=== PATIENT | female | born 1965 | race Caucasian/White ===

== ENCOUNTER 2017-01-03 20:31 | Emergency (ER) | payer BC ==
[~2017-01-03] VITALS: Ht 167.6 cm; Wt 99.8 kg
[2017-01-03 20:31] VITALS: BP 179/98
--- NOTE | 2017-01-03 20:39 | ED.ADGEN ---
Past History Past Medical History: Other Adult General Chief Complaint Chief Complaint " I was stepping over my dog "Happy" fence in my front room.. and got caught up and twisted this ankle 2 weeks ago... it turn all black and blue.. that florencia gone away.. but this part is still really tender ( indicates distal tibia) [facility] HPI Patient is a 51 year old female who presents with above hx and injury to right ankle. The ankle does show resolving ecchymosis. Does have laxity on anterior drawer and eversion. Localizes pain on distal tibia medial side. There is mild pain on foot squeeze. Distal neurovascular intact. Achilles tendon nontender. There is a varicosity and It is nontender. No upper leg tenderness. Patient denies other injury. Patient normally follows with Dr. Gomez Review of Systems Review of Systems Constitutional: Denies fever or chills [] Eyes: Denies change in visual acuity, redness, or eye pain [] HENT: Denies nasal congestion or sore throat [] Respiratory: Denies cough or shortness of breath [] Cardiovascular: No additional information not addressed in HPI [] GI: Denies abdominal pain, nausea, vomiting, bloody stools or diarrhea [] : Denies dysuria or hematuria [] Musculoskeletal: Denies back pain or joint pain []except right ankle pain Integument: Denies rash or skin lesions [] Neurologic: Denies headache, focal weakness or sensory changes [] Endocrine: Denies polyuria or polydipsia [] Family History Family History Noncontributory Current Medications Current Medications See nursing for home meds Allergies Allergies Allergies Coded Allergies Type Severity Reaction Last Updated Verified No Known Drug Allergies 01/03/17 No Physical Exam Physical Exam Constitutional: Well developed, well nourished, no acute distress, non-toxic appearance. [] HENT: Normocephalic, atraumatic, bilateral external ears normal, oropharynx moist, no oral exudates, nose normal. [] Eyes: PERRLA, EOMI, conjunctiva normal, no discharge. [] Neck: Normal range of motion, no tenderness, supple, no stridor. [] Cardiovascular:Heart rate regular rhythm, no murmur [] Lungs & Thorax: Bilateral breath sounds clear to auscultation [] Abdomen: Bowel sounds normal, soft, no tenderness, no masses, no pulsatile masses. Obese Skin: Warm, dry, no erythema, no rash. [] Back: No tenderness, no CVA tenderness. [] Extremities: No tenderness, no cyanosis, no clubbing, ROM intact, no edema. [] Except right ankle as per history of present illness Neurologic: Alert and oriented X 3, normal motor function, normal sensory function, no focal deficits noted. [] Psychologic: Affect normal, judgement normal, mood normal. [] Current Patient Data Vital Signs Vital Signs Date Time Temp Pulse Resp B/P (MAP) Pulse Ox O2 Delivery O2 Flow Rate FiO2 01/03/17 20:31 98.7 101 18 97 Room Air EKG EKG [] Radiology/Procedures Radiology/Procedures My interpretation of foot film showed no obvious fracture dislocation. There is multiple areas of spurring and degenerative joint changes. There is an area at the distal tibia which may be a prolonged fracture or calcified ligament disruption. Can also be seen on the lateral ankle films. This is area of at has point tenderness.[] Course & Med Decision Making Course & Med Decision Making Pertinent Labs and Imaging studies reviewed. (See chart for details) Ice, rest, elevation, ibuprofen Tylenol for pain. Wear splint. Follow-up primary care. Consider follow-up with orthopedics [] Final Impression Final Impression 1. Sprain / Strain 2. Fx. Tib. vs pull off spur or calcified ligament[] Problems: Dragon Disclaimer Dragon Disclaimer This electronic medical record was generated, in whole or in part, using a voice recognition dictation system. CARLOS STEVEN MD Jan 03, 2017 20:39
--- NOTE | 2017-01-04 08:15 | RAD ---
Right foot, 3 views, 2016: History: Fall, injury, pain No acute fracture or dislocation is identified. There are scattered degenerative changes including the first MTP joint and at the midfoot level. There is a small inferior calcaneal spur. There is mild subcutaneous edema. IMPRESSION: 1. Moderate scattered degenerative changes. 2. No acute bony abnormality is detected. Right ankle, 3 views, 2016: No acute fracture or dislocation is identified. There is mild spurring at the ankle joint. IMPRESSION: No acute bony abnormality is detected.
== END 2017-01-03 21:58 | disposition home or self-care (01) ==
LOC: ER 20:31
DX: S99.911A Unspecified injury of right ankle, initial encounter (principal); W54.8XXA Other contact with dog, initial encounter; Y93.89 Activity, other specified; Y99.8 Other external cause status; Y92.89 Other specified places as the place of occurrence of the external cause
CPT/HCPCS: 73610; 73630; 99284

== ENCOUNTER → 2019-11-16 | Outpatient (CLI) | payer BC ==
--- NOTE | 2019-11-16 10:55 | RAD ---
EXAM: Right knee, 3 views. HISTORY: Pain. COMPARISON: None. FINDINGS: 3 views of the right knee are obtained. There is no fracture, dislocation or subluxation. There is mild medial and patellofemoral compartment spurring. There is an intra-articular spur along the tibial spines. There is a small bone island. There is a small joint effusion. IMPRESSION: 1. Mild right knee osteoarthritis. 2. Small right knee effusion. Electronically signed by: Eloisa Benjamin MD (11/16/2019 10:52 AM) [id number]
== END | disposition home or self-care (01) ==
LOC: PMG 10:21
DX: M17.11 Unilateral primary osteoarthritis, right knee (principal); M25.461 Effusion, right knee; M76.9 Unspecified enthesopathy, lower limb, excluding foot
CPT/HCPCS: 73562

== ENCOUNTER → 2020-05-03 | Outpatient (CLI) | payer BC ==
--- NOTE | 2020-05-03 09:20 | RAD ---
Right lower extremity venous duplex study 05/03/2020 9:16 AM Clinical History: Reason: RIGHT CALF PAIN X 6 DAYS / Technique: Using a combination of real time ultrasound imaging and color-flow and pulse Doppler imagi ng techniques, including spectral analysis, graded compression and augmentation, duplex evaluation of the deep venous system of the right lower extremity was performed. Multiple images were obtained. Findings: There is no sonographic evidence of deep venous thrombosis involving the visualized deep ve nous structures of the right lower extremity Impression: No evidence of deep venous thrombosis involving the right lower extremity Electronically signed by: Michael Quinn MD (05/03/2020 9:16 AM) [id number]
== END ==
LOC: US 08:41
PROVIDERS: ATTEND Nurse Practitioner Family
DX: M79.661 Pain in right lower leg (principal)
CPT/HCPCS: 93971

== ENCOUNTER 2020-09-13 00:45 | Emergency (ER) | payer BC ==
[~2020-09-13] VITALS: Ht 167.6 cm; Wt 104.5 kg
--- NOTE | 2020-09-13 01:13 | PHYS DOC ---
Past History Past Medical History: Hypothyroid, Other Past Surgical History: No Surgical History Alcohol Use: None Drug Use: None General Adult EDM: Chief Complaint: CHEST PAIN HPI: HPI: 55-year-old female presents with chest pain. She has been having sharp, intermittent chest pain for the last 4 days. The episodes last from several minutes up to an hour or 2. She presents tonight because she had an episode of 10 out of 10 pain 30 min prior to arrival. It has decreased to a 3 out of 10. She has some mild shortness of breath with the pain, but denies diaphoresis. There does not seem to be any pattern. Nothing makes it better or worse. Exertion doesn't make it worse. She denies fever or chills. No significant history of GERD. Review of Systems: Review of Systems: Constitutional: Denies fever or chills Eyes: Denies change in visual acuity HENT: Denies nasal congestion or sore throat Respiratory: Denies cough or shortness of breath Cardiovascular: Chest pain GI: Denies abdominal pain, nausea, vomiting, bloody stools or diarrhea : Denies dysuria Musculoskeletal: Denies back pain or joint pain Integument: Denies rash Neurologic: Denies headache, focal weakness or sensory changes Endocrine: Denies polyuria or polydipsia Lymphatic: Denies swollen glands Psychiatric: Denies depression or anxiety Allergies: Allergies: Allergies Coded Allergies Type Severity Reaction Last Updated Verified No Known Drug Allergies 01/03/17 No Physical Exam: PE: Constitutional: Well developed, well nourished, morbidly obese, no acute di stress, non-toxic appearance. [] HENT: Normocephalic, atraumatic, bilateral external ears normal, oropharynx moist, no oral exudates, nose normal. [] Eyes: PERRLA, EOMI, conjunctiva normal, no discharge. [] Neck: Normal range of motion, no tenderness, supple, no stridor. [] Cardiovascular: Heart rate 82, regular rhythm, no murmur [] Lungs & Thorax: Bilateral breath sounds clear to auscultation [] Abdomen: Bowel sounds normal, soft, no tenderness, no masses, no pulsatile masses. [] Skin: Warm, dry, no erythema, no rash. [] Back: No tenderness, no CVA tenderness. [] Extremities: No tenderness, no cyanosis, no clubbing, ROM intact, no edema. [] Neurologic: Alert and oriented X 3, normal motor function, normal sensory function, no focal deficits noted. [] Psychologic: Affect normal, judgement normal, mood normal. [] Current Patient Data: Vital Signs: Vital Signs Date Time Temp Pulse Resp B/P (MAP) Pulse Ox O2 Delivery O2 Flow Rate FiO2 09/13/20 00:45 97.8 82 20 165/88 (113) 95 Room Air EKG: EKG: Sinus rhythm, rate 82, normal axis, no ST elevations or depressions. [] Radiology/Procedures: Radiology/Procedures: [] Impressions: INDICATION: Reason: CP / Spl. Instructions: / History: COMPARISON: April 2006 FINDINGS: Single view of chest obtained. Cardiac silhouette is unremarkable. Degenerative changes of the spine. No definite focal consolidation or edema. IMPRESSION: * No focal airspace consolidation or edema. Electronically signed by: Mariano Knox MD (09/13/2020 1:36 AM) [id number] DICTATED AND SIGNED BY: MARIANO KNOX MD DATE: 09/13/20 0135 CC: LYNSEY HENDRICKS DO; JETHRO CARNEY PA ~MTH0 0 Heart Score: C/O Chest Pain: Yes HEART Score for Chest Pain: HEART Score for Chest Pain Response (Comments) Value History Slighlty/Non-Suspicious 0 ECG Normal 0 Age >45 - < 65 1 Risk Factors 1 or 2 Risk Factors 1 Troponin < Normal Limit 0 Total 2 Risk Factors: Risk Factors: DM, Current or recent (<one month) smoker, HTN, HLP, family history of CAD, obesity. Risk Scores: Score 0 - 3: 2.5% MACE over next 6 weeks - Discharge Home Score 4 - 6: 20.3% MACE over next 6 weeks - Admit for Clinical Observation Score 7 - 10: 72.7% MACE over next 6 weeks - Early Invasive Strategies Course & Med Decision Making: Course & Med Decision Making Pertinent Labs and Imaging studies reviewed. (See chart for details) The patient's labs are unremarkable. Her EKG is unremarkable. Her troponin is negative. Patient's chest x-ray is negative for acute findings. Given that the patient's had this pain for multiple days and her heart score is a 2, I do not believe the patient needs to be admitted. I have tried Pepcid to see if this might help. The patient will follow up with her primary care physician as needed. She is stable for discharge at this time. [] Axel Disclaimer: Axel Disclaimer: This electronic medical record was generated, in whole or in part, using a voice recognition dictation system. Departure Departure: Impression: Primary Impression: Chest pain Qualified Codes: R07.9 - Chest pain, unspecified Disposition: HOME / SELF CARE / HOMELESS Condition: STABLE Referrals: JETHRO CARNEY (PCP) Patient Instructions: Chest Pain (Nonspecific), [id number] LYNSEY HENDRICKS DO September 13, 2020 01:13
[2020-09-13 01:16] LABS: CALCIUM 9.1 mg/dL (8.5-10.1); CREATININE 0.7 mg/dL (0.6-1.0); GFR 86.2; POTASSIUM 3.7 mmol/L (3.5-5.1)
[2020-09-13 01:22] LABS: ALBUMIN 3.7 g/dL (3.4-5.0); ALBUMIN/GLOBULIN RATIO 0.9 (1.0-1.7); TOTAL BILIRUBIN 0.3 mg/dL (0.2-1.0); TOTAL PROTEIN 7.7 g/dL (6.4-8.2)
[2020-09-13 01:28] LABS: BASO # 0.1 x10^3/uL (0.0-0.2); BASO % 1 % (0-3); EOS # 0.2 x10^3/uL (0.0-0.7); EOS % 3 % (0-3); HEMATOCRIT 41.2 % (36.0-47.0); HEMOGLOBIN 13.9 g/dL (12.0-15.5); LYMPH # 3.7 x10^3/uL (1.0-4.8); LYMPH % 45 % (24-48); MEAN CORPUSCULAR HEMOGLOBIN 30 pg (25-35); MEAN CORPUSCULAR HGB CONC 34 g/dL (31-37); MEAN CORPUSCULAR VOLUME 90 fL (79-100); MONO # 0.8 x10^3/uL (0.0-1.1); MONO % 10 % (0-9); NEUT # 3.4 x10^3uL (1.8-7.7); NEUT % 41 % (31-73); PLATELET COUNT 294 x10^3/uL (140-400); RED BLOOD COUNT 4.58 x10^6/uL (3.50-5.40); RED CELL DISTRIBUTION WIDTH 14.3 % (11.5-14.5); WHITE BLOOD COUNT 8.2 x10^3/uL (4.0-11.0)
--- NOTE | 2020-09-13 01:38 | RAD ---
INDICATION: Reason: CP / Spl. Instructions: / History: COMPARISON: April 2006 FINDINGS: Single view of chest obtained. Cardiac silhouette is unremarkable. Degenerative changes of the spine. No definite focal consolidatio n or edema. IMPRESSION: * No focal airspace consolidation or edema. Electronically signed by: Renato Knox MD (09/13/2020 1:36 AM) [id number]
[2020-09-13 01:47] VITALS: BP 151/82
[2020-09-13] MEDS: FAMOTIDINE 20 MG/2 ML VIAL IVP ONE (02:03)
--- NOTE | 2020-09-13 02:45 | EKG ---
[address] [address] Test Date: 2020-09-13 Test Time: 00:49:38 Pat Name: JOAN CUTLER Department: Room: Gender: F [employer] General Manager: : 1965 Requested By: LYNSEY HENDRICKS Order Number: [id number] Reading MD: Measurements Intervals Bertrand Rate: 82 P: 42 CO: 176 QRS: 36 QRSD: 88 T: 36 QT: 376 QTc: 442 Interpretive Statements SINUS RHYTHM NORMAL ECG RI6.02 No previous ECG available for comparison
== END 2020-09-13 02:10 | disposition home or self-care (01) ==
LOC: ER 00:45
DX: R07.89 Other chest pain (principal)
CPT/HCPCS: 36415; 71045; 80053; 84484; 85025; 93005; 96374; 99285; J3490

== ENCOUNTER → 2021-01-02 | Emergency (ER) | payer BC ==
[~2021-01-02] VITALS: Ht 170.2 cm; Wt 111.1 kg
[2021-01-02 20:08] VITALS: BP 136/69
--- NOTE | 2021-01-02 20:22 | PHYS DOC ---
Past History Past Medical History: Hypertension, Hypothyroid Additional Past Medical Histor: Pressure in eyes Past Surgical History: Other Additional Past Surgical Histo: Right knee Alcohol Use: None Drug Use: None Adult General Chief Complaint Chief Complaint: ALLERGIC REACTION HPI HPI Patient is an otherwise healthy 55-year-old female who presents with hives. States that about 6 hours ago she was mowing the yard, and after she was done started having some itching and redness in her upper and lower extremities. Denies any headache, lightheadedness, changes in vision, chest pain, shortness of breath, wheezing, abdominal pain, nausea, vomiting, diarrhea. States she does have seasonal allergies but usually does not get hives. Review of Systems Review of Systems Review of systems otherwise unremarkable except noted in HPI Allergies Allergies Allergies Coded Allergies Type Severity Reaction Last Updated Verified No Known Drug Allergies 01/03/17 No Physical Exam Physical Exam Constitutional: Well developed, well nourished, no acute distress, non-toxic appearance. [] HENT: Normocephalic, atraumatic, oropharynx moist, no oral exudates, Eyes: PERRLA, EOMI, conjunctiva normal, no discharge. [] Neck: Normal range of motion, no tenderness, supple, no stridor. [] Cardiovascular:Heart rate regular rhythm, no murmur [] Lungs & Thorax: Bilateral breath sounds clear to auscultation [] Abdomen: soft, no tenderness, no masses, no pulsatile masses. [] Skin: Warm, dry, no erythema, no rash. [] Back: No tenderness, no CVA tenderness. [] Extremities: No tenderness,ROM intact, no edema. [] Neurologic: Alert and oriented X 3, no focal deficits noted. [] Psychologic: Affect normal, judgement normal, mood normal. [] Current Patient Data Vital Signs Vital Signs Date Time Temp Pulse Resp B/P (MAP) Pulse Ox O2 Delivery O2 Flow Rate FiO2 01/02/21 20:08 99.0 88 16 136/69 (91) 96 Room Air EKG EKG [] Radiology/Procedures Radiology/Procedures [] Heart Score C/O Chest Pain: No Risk Factors: Risk Factors: DM, Current or recent (<one month) smoker, HTN, HLP, family history of CAD, obesity. Risk Scores: Risk Factors: DM, Current or recent (<one month) smoker, HTN, HLP, family history of CAD, obesity. Course & Med Decision Making Course & Med Decision Making Patient is a 55-year-old female who presents with hives That will signs not concerning. Physical exam noted above given Benadryl and steroids. Discussed all findings with patient. Advised on symptomatic treatment at home. Advised to follow-up in the morning with primary care physician. Gave return precautions to the ED. Patient grateful, verbalized understanding and agreed with plan of discharge. [] Dragon Disclaimer Dragon Disclaimer This electronic medical record was generated, in whole or in part, using a voice recognition dictation system. Departure Departure: Impression: Primary Impression: Hives Disposition: HOME / SELF CARE / HOMELESS Condition: GOOD Referrals: JETHRO CARNEY (PCP) Patient Instructions: Hives Additional Instructions: Thanks for coming into the emergency department tonight and allowing us to take care of you. Please read the attached information. You can take Benadryl as needed at home and discussed. Please follow-up in the morning with your primary care physician. Please come back to the ED with new or concerning symptoms as discussed. LOU CRUMP MD Jan 02, 2021 20:22
[2021-01-02] MEDS: DEXAMETHASONE 4 MG TABLET PO ONE (20:28)
[2021-01-02] MEDS: diphenhydrAMINE HCL 25 MG CAPSULE PO ONE (20:28)
== END | disposition home or self-care (01) ==
LOC: ER 20:05
DX: L50.9 Urticaria, unspecified (principal); I10 Essential (primary) hypertension
CPT/HCPCS: 99283; J8540; Q0163

== ENCOUNTER → 2021-06-13 | Outpatient (CLI) | payer BC ==
[2021-01-02 20:08] VITALS: BP 136/69
--- NOTE | 2021-06-13 17:00 | RAD ---
Bilateral digital screening 2-D and 3-D (digital breast tomosynthesis) mammogram: Reason for examination: Routine screening. Comparison: Mammogram from 03/13/2015. Interpretation was made with the benefit of CAD. FINDINGS: Breast density: Category B. There are scattered areas of fibroglandular density. No new suspicious breast mass, malignant appearing calcifications, or architectural distortion is see n. There are 2 small oval circumscribed masses in the left breast which are stable. IMPRESSION: No evidence of malignancy. Assessment: BI-RADS 2. Benign findings. Recommendation: Routine screening mammograms. The patient will receive a letter with the results in the mail. Patient information will be entered i nto the mammography reminder system with a target recall date for the next mammogram. A reminder caitie er will be generated. Electronically signed by: Amber Mo MD (06/13/2021 4:58 PM) [id number]
== END ==
LOC: MAMMO 13:58
PROVIDERS: ATTEND Physician Assistant Medical
DX: Z12.31 Encounter for screening mammogram for malignant neoplasm of breast (principal)
CPT/HCPCS: 77063; 77067

== ENCOUNTER → 2021-09-23 | Outpatient (CLI) | payer BC ==
[2021-01-02 20:08] VITALS: BP 136/69
--- NOTE | 2021-09-23 09:34 | RAD ---
CT ABDOMEN+PELVIS WO History: Rectal cancer staging. Blood in stool. Back pain. Comparison: None. Technique: CT abdomen and pelvis without contrast. Findings: Right lower lobe fibrotic changes adjacent to the thoracic spine osteophytes. The liver, gallbladder, pancreas, adrenal glands, and kidneys are unremarkable. There small calcifica tions throughout the spleen consistent with granulomatous disease. The stomach, small bowel and appendix are normal. No colonic wall thickening is identified. There is adenopathy in the mesorectal fat with a 8 mm short axis posterior right lymph node and 3 adj acent right lateral mesial rectal lymph nodes measuring 6 mm short axis. There is a 10 mm the left in ternal iliac lymph node. The bladder is relatively decompressed and unremarkable. The uterus is unremarkable. Unenhanced vascu lature is within normal limits. No intra-abdominal free air or free fluid. Soft tissues are unremarka ble. There is multilevel degenerative facet and disc disease of the lumbar spine. No suspicious osseo us lytic or blastic lesions. Impression: 1. Abnormal lymph nodes within the right mesorectal fat and at the left internal iliac station darnell rning for cecilio metastatic disease from rectal carcinoma. ------ Exposure: One or more of the following individualized dose reduction techniques were utilized for thi s examination: 1. Automated exposure control 2. Adjustment of the mA and/or kV according to patient size 3. Use of iterative reconstruction technique. Electronically signed by: Mike Lozano MD (09/23/2021 9:31 AM) [id number]
== END ==
LOC: CT 08:05
PROVIDERS: ATTEND Internal Medicine Gastroenterology
DX: C20 Malignant neoplasm of rectum (principal); J84.10 Pulmonary fibrosis, unspecified; M25.78 Osteophyte, vertebrae; R59.9 Enlarged lymph nodes, unspecified; M47.816 Spondylosis without myelopathy or radiculopathy, lumbar region; M51.26 Other intervertebral disc displacement, lumbar region
CPT/HCPCS: 74176